=== PATIENT | male | born 1965 | race Caucasian/White ===

== ENCOUNTER 2020-09-20 09:47 | Outpatient (REF) | payer OTHER, SELFPAY | END 2020-09-20 09:48 | disposition home or self-care (01) | LOC: HO.LNP 09:47 | PROVIDERS: Visit Provider Internal Medicine Gastroenterology | DX: R10.13 Epigastric pain (principal) | CPT/HCPCS: 87338 ==

== ENCOUNTER 2025-08-04 07:49 | Day surgery (SDC) | payer OTHER, SELFPAY ==
--- NOTE | 2025-08-02 09:19 | HO.ANESPROP2 ---
Documented by User: Olga Devlin NP 08/02/25 09:19 HPI - Anesthesia Eval Consult details Narrative: 60 yr old male for Upper Endoscopy and Colonoscopy [facility] Past Medical History Medical History Cerebral palsy Elevated cholesterol Migraines GERD (gastroesophageal reflux disease) IBS (irritable bowel syndrome) Asthma Surgical History Surgical History Hx of excision of mass History of esophagogastroduodenoscopy (EGD) H/O colonoscopy Social History Social History Patient Tobacco Use Status: Never used Tobacco Use of substances other than those prescribed or required for medical reasons: No Are you DNR?: No Advance Directives: No Advance Directives Information Provided: Yes Meds Allergies Allergy/AdvReac Type Severity Reaction Status Date / Time almond (ALMOND) Allergy Intermediate ANAPHYLAXIS Verified 08/04/25 08:21 aspirin (ASPIRIN) AdvReac Intermediate STOMACH Verified 08/04/25 08:21 UPSET ibuprofen (From MOTRIN) AdvReac Intermediate STOMACH Verified 08/04/25 08:21 UPSET Home Medications ?Medication ?Instructions ?Recorded ?Confirmed ?Last Taken ?Type albuterol sulfate 90 mcg/actuation 2 puff inhalation Q4-6H PRN 08/02/25 08/02/25 Unknown History aerosol inhaler (Ventolin HFA) Shortness Of Breath Or Wheezing pantoprazole 40 mg tablet,delayed 40 mg PO DAILY 08/02/25 08/02/25 Unknown History release rosuvastatin 20 mg tablet 20 mg PO DAILY 08/02/25 08/02/25 Unknown History Documented by User: Loli Hanson MD 08/04/25 09:20 [facility] Past Medical History Medical History Cerebral palsy Elevated cholesterol Migraines GERD (gastroesophageal reflux disease) IBS (irritable bowel syndrome) Asthma Family History Family history of problems with anesthesia: No Surgical History Surgical History Hx of excision of mass History of esophagogastroduodenoscopy (EGD) H/O colonoscopy History of Problems with Anesthesia: No Social History Social History Patient Tobacco Use Status: Never used Tobacco Use of substances other than those prescribed or required for medical reasons: No Are you DNR?: No Advance Directives: No Advance Directives Information Provided: Yes Meds Allergies Allergy/AdvReac Type Severity Reaction Status Date / Time almond (ALMOND) Allergy Intermediate ANAPHYLAXIS Verified 08/04/25 08:21 aspirin (ASPIRIN) AdvReac Intermediate STOMACH Verified 08/04/25 08:21 UPSET ibuprofen (From MOTRIN) AdvReac Intermediate STOMACH Verified 08/04/25 08:21 UPSET Home Medications ?Medication ?Instructions ?Recorded ?Confirmed ?Last Taken ?Type albuterol sulfate 90 mcg/actuation 2 puff inhalation Q4-6H PRN 08/02/25 08/02/25 Unknown History aerosol inhaler (Ventolin HFA) Shortness Of Breath Or Wheezing pantoprazole 40 mg tablet,delayed 40 mg PO DAILY 08/02/25 08/02/25 Unknown History release rosuvastatin 20 mg tablet 20 mg PO DAILY 08/02/25 08/02/25 Unknown History Exam Airway Mallampati Class: III TM Dist: <=3cm Heart: rrr Lungs: cta Assessment and Plan Assessment Anesthesia Assessment: Anesthesia Plan Discussed and Chart Reviewed Final Anesthetic Review Family History of Problems with Anesthesia: No History of Problems with Anesthesia: No NPO: Yes ASA Class: II Final Preanesthetic Review: No Changes in Pt Med Stat, Meds/Allgs Chart Reviewed, Consent Obtained/Reviewed and Anes Risks/Benef Reviewed Patient Risk: Low Procedure Risk: Low Anesthetic Plan Anesthetic Plan: MAC: and Agree w/ Assess. and Plan Disposition: Standard PACU
[2025-08-02 13:29] VITALS: BMI 31.7
[2025-08-04 07:56] VITALS: BMI 31.4
[2025-08-04 08:14] VITALS: BP 129/82; PULSE 94; RESP 16; TEMP 35.9; O2SAT 96
[2025-08-04] MEDS: Lactated Ringers 1,000 ML 100 ML IVCONT (08:21)
--- NOTE | 2025-08-04 09:00 | MHC.SHP ---
Pre-Procedural Eval Section A - 24 Hr Update-Section A only Date of Service: 08/04/25 Section B - Complete if H&P > 30 days Chief Complaint: gerd,rectal bleeding Details of Present Illness: see H&P no changes Relevant Family History (Specify if Yes): No Relevant Social History: None Present Medications: see Short Stay Collaborative assessment Medical History: No relevant PMH Allergies: Allergies Allergy/AdvReac Type Severity Reaction Status Date / Time almond (ALMOND) Allergy Intermediate ANAPHYLAXIS Verified 08/04/25 08:21 aspirin (ASPIRIN) AdvReac Intermediate STOMACH Verified 08/04/25 08:21 UPSET ibuprofen (From MOTRIN) AdvReac Intermediate STOMACH Verified 08/04/25 08:21 UPSET Review of Systems Sugical H&P ROS: Negative: Constitution, Cardiovascular, Respiratory, Neurological, Psychiatric, Hem-Onc, Allergic/Immunologic, Gastrointestinal, Genitourinary, Musculoskeletal, Integumentary, Endocrine and Eyes/Ears/Nose/Throat Exam Surgical H&P Exam: Normal: HEENT, Normal: Heart, Normal: Lungs, Normal: Extremities, Normal: Abdomen, Normal: Skin and Normal: Neurological Plan Diagnosis/Plan: Unchanged I have reviewed the history and physical and performed a pertinent physical examination on my patient. No changes have occurred unless specified. Time Spent With Patient Time: Total time managing care of this patient today ____ minutes.
[2025-08-04 09:53] VITALS: BP 123/73; PULSE 83; RESP 16; TEMP 36.7; O2SAT 99
[2025-08-04 10:07] VITALS: BP 126/77; PULSE 88; RESP 20; TEMP 37; O2SAT 95
--- NOTE | 2025-08-04 10:13 | OP_ITS ---
DATE OF SERVICE: 08/04/2025 SURGEON: Black Boston MD INDICATIONS: Gastroesophageal reflux disease and rectal bleeding. PREOPERATIVE DIAGNOSIS: POSTOPERATIVE DIAGNOSIS: PROCEDURE PERFORMED: Upper endoscopy with biopsy, colonoscopy to the terminal ileum with biopsy and snare polypectomy. ESTIMATED BLOOD LOSS: COMPLICATIONS: ANESTHESIA: Monitored anesthesia care. ASSISTANTS: SPECIMENS: DESCRIPTION OF PROCEDURE: A history and physical was performed. The risks and benefits of the procedure were explained to the patient. Informed consent was obtained. The patient was placed in the left lateral decubitus position. The Olympus video gastroscope was introduced into the esophagus, stomach, and duodenum. Examination was performed. The scope was removed. He tolerated the procedure well and was repositioned for colonoscopy. A digital rectal exam was performed and was found to be normal. The Olympus pediatric video colonoscope was introduced into the rectum and advanced to the cecum. The cecum was identified by transillumination, palpation, and identification of ileocecal valve. Examination was performed. The scope was removed. He tolerated both procedures well, returned to recovery area in stable condition. FINDINGS: Upper endoscopy: 1. Esophagus: The esophagus was normal. EG junction was irregular. This was biopsied. 2. Stomach: The stomach showed no evidence of masses, ulcers, or polyps. Antral biopsies were obtained. 3. Duodenum: The bulb and 2nd portion were normal. Colonoscopy: The terminal ileum was normal. This was biopsied. There was some mild nonspecific inflammatory changes, but no evidence of definite Crohn disease. The visualized colonic mucosa was normal. Random biopsies were obtained. There was a small polyp, which was removed with a cold snare. The polyp measured less than 5 mm and was located at 40 cm. The second polyp in the rectum was also removed measuring less than 5 mm removed with the biopsy forceps. Retroflexed examination showed some internal hemorrhoids. IMPRESSION: Colon polyps, gastroesophageal reflux disease. RECOMMENDATION: Follow up the biopsy results. MD JOSE J Julien/ADRIANE / [id number]
== END 2025-08-04 10:37 | disposition home or self-care (01) ==
PROVIDERS: PCP Internal Medicine; Visit Provider Internal Medicine Gastroenterology
PROC: (CPT 45380; principal; 2025-08-04 09:00)
DX: K62.5 Hemorrhage of anus and rectum (principal); K21.9 Gastro-esophageal reflux disease without esophagitis; K64.8 Other hemorrhoids; D12.4 Benign neoplasm of descending colon
CPT/HCPCS: 45380; 45385; 43239; 88305; 88313; 88342; J2704